=== PATIENT | male | born 1945 | race Caucasian/White ===

== ENCOUNTER → 2018-04-20 | Outpatient (CLI) | payer MEDICARE ==
[~2018-04-20] MED LIST: ACETAMINOPHEN325 M1 PO; BLADDER MEDICATION PO; FLOMAX0.4 MG PO; HYDROCHLOROTHIAZIDE PO; LOVASTATIN10 MG PO; OXYBUTYNIN CHLOR5 MG PO; RAPAFLO4 MG PO; TESTOSTERONE IM
--- NOTE | 2018-04-20 17:08 | Diagnostic Imaging Report ---
PROCEDURE:X-RAY ABDOMEN - KUB COMPARISON:12/01/2013 INDICATIONS:FOLLOW UP KIDNEY STONES FINDINGS: One view of the abdomen (AP supine) No dilated loops of bowel or abnormal air-fluid levels patterns. No free air underneath the diaphragm. Visualized portions of the lung bases are clear. The previously seen 9 mm calcification overlying the left kidney is no longer visualized. There is a stable 3 mm calcification overlying the interpolar region of the right kidney. Five non-rib bearing lumbar type vertebral bodies identified. CONCLUSION: The previously seen 9 mm calcification overlying the left kidney is no longer visualized. Stable 3 mm calcification overlying the right kidney. Dictated by: Anand Crum M.D. on 04/20/2018 at 17:14 Electronically approved by: Anand Crum M.D. on 04/20/2018 at 17:14
== END ==
LOC: RAD 16:25
PROVIDERS: ATTEND Urology
DX: N20.0 Calculus of kidney (principal)
CPT/HCPCS: 74018

== ENCOUNTER → 2018-10-19 | Outpatient (CLI) | payer MEDICARE ==
--- NOTE | 2018-10-19 18:15 | Diagnostic Imaging Report ---
EXAM: Abdomen 2 Views INDICATION: ^[id number] ^[id number] ^Personal history of urinary calculi COMPARISON: KUB from 04/20/2018 on 12/01/2013 FINDINGS: Lines/tubes: None. Moderate amount of stool in the colon. No dilated loops of small bowel. Suboptimal evaluation of the renal shadows due to overlying bowel gas. Round calcification overlying the right upper quadrant may represent a gallstone rather than enlarged calcified stone. No abnormal soft tissue masses. Moderate degenerative changes in the lumbar spine and pelvis. IMPRESSION: Suboptimal examination for evaluation of renal stones. Indeterminate round calcification overlying the right upper quadrant may represent a gallstone or large renal stone. Signed by: Dr. Marcelina Cuello M.D. on 10/19/2018 6:12 PM
== END ==
LOC: RAD 15:47
PROVIDERS: ATTEND Urology
DX: Z87.442 Personal history of urinary calculi (principal)
CPT/HCPCS: 74018